=== PATIENT | male | born 1960 | race Caucasian/White ===

== ENCOUNTER 2020-04-09 13:56 | Emergency (ER) | payer OTHER ==
[~2020-04-09] VITALS: Ht 180.3 cm; Wt 117.9 kg
[2020-04-09] MEDS ORDERED: METF500 PO (14:22)
== END 2020-04-09 15:05 | disposition home or self-care (01) ==
LOC: ER 13:56
DX: Z00.00 Encounter for general adult medical examination without abnormal findings (principal); F17.220 Nicotine dependence, chewing tobacco, uncomplicated
CPT/HCPCS: 99282